=== PATIENT | male | born 1950 | race Caucasian/White ===

== ENCOUNTER 2024-09-22 13:05 | Outpatient (AMB) | payer OTHER, MEDICARE, SELFPAY ==
--- NOTE | 2024-09-22 13:09 | A.OFFVIS_ITS ---
Intake Visit Reasons: 3 month f/u Allergies oxycodone Allergy (Verified 09/21/24 16:36) Unknown Medication List - Last Reconciled 09/22/24 by Fe Jones MD aripiprazole 5 mg PO DAILY aspirin 81 mg PO DAILY memantine 5 mg PO BID metoprolol succinate ER 25 mg PO DAILY sertraline 50 mg PO DAILY trazodone 25 mg PO QPM HPI Comments Details: 73 years old left-handed man with past medical history of coronary artery disease and bypass surgery done in November of 2023, and vascular dementia. His MRI brain in 2024 revealed extensive microvascular disease ischemic disease. He was having more problems with his cognition and tremor in his hands. [facility] Medical History (Updated 09/22/24 @ 13:19 by Fe Jones MD) Vascular dementia Alzheimer disease Encephalopathy Surgical History (Updated 09/21/24 @ 16:35 by Paulina Mccrary MA) Hx of CABG Physical Exam Neuro Other: Mental Status: Alert and oriented to person, place, and time. Normal attention. Normal spontaneous speech, fluency, and comprehension. No obvious issues with mood and memory. Affect is appropriate. Cranial Nerves: CN II: Visual desai full to confrontation, visual acuity intact. CN III, IV, : Pupils equal, round, reactive to light and accommodation. Extraocular movements are normal. CN V: Facial sensation is normal. CN VII: Facial movements symmetrical. CN VIII: Hearing intact to bedside conversation is normal. CN IX, X: Palate elevates symmetrically. CN XI: Shoulder shrug and head turn symmetrical. CN XII: Tongue midline without atrophy or fasciculations. Motor: Bulk and tone normal in all extremities. No significant muscle weakness in arms and legs. No drift. Reflexes: Deep tendon reflexes 2+ and symmetric. Plantar response down-going bilaterally. Coordination: [id number]-pu-[id number] and stmc-cw-vcvw testing normal. No dysmetria. Gait and Station: No obvious gait abnormality. No ataxia or instability. Sensory: Intact to light touch, pinprick, and vibration. Romberg is negative. Extrapyramidal: Full facial expressions and blinking. No rigidity. Movements are appropriate with no tremor or abnormality. Speech: Normal; no dysarthria or tremor. Assessment & Plan Assessment & Plan (1) Vascular dementia: Comment: MRI brain WO at [facility] in May 2024: Extensive WM changes (reported) EEG at off in Apr 2024: Mild slowing B12/Lyme in Apr 2024: OK Code(s): F01.50 - Vascular dementia, unspecified severity, without behavioral disturbance, psychotic disturbance, mood disturbance, and anxiety Category: Medical Qualifiers: Dementia severity: moderate Dementia behavioral or psychological symptom: without behavioral, psychotic, or mood disturbance or anxiety Qualified Code(s): F01.B0 - Vascular dementia, moderate, without behavioral disturbance, psychotic disturbance, mood disturbance, and anxiety Plan Symptoms of worsening cognitive functioning, tremor and balance were discussed with his daughter. Dose of memantine was increased to 10 mg twice a day. Tremor was mild and he was already taking a beta pinky and adding propranolol at this time might not make any significant difference. He has been walking with a cane and also has a walker and was advised to use the walker to walk for exercise. He was not having any significant behavioral issues to suggest prescribing any psychotropic medicines. MRI CD was not here and was not reviewed. His daughter would try to obtain the CD and would bring it at next visit. Medications: New memantine (Namenda) 10 mg PO BID 180 tabs 1RF 90 days Coding Level of Care Code Est Pt Level 4 (30437) Diagnoses Moderate vascular dementia without behavioral disturbance, psychotic disturbance, mood disturbance, or anxiety F01.B0 Dementia severity: moderate Dementia behavioral or psychological symptom: without behavioral, psychotic, or mood disturbance or anxiety
--- OUTSIDE RECORDS SUMMARY | 2024-09-22 13:42 | XMS_ITS | Clinical Summary ---
Author Organization [facility] Address [address] [facility] [place] [address] Phone Care Team Providers Care Multilith Operator Name Role Phone Shekhar Parks NP Primary Care Provider Allergies Active Allergy Reactions Criticality Noted Date Comments Oxycodone Nausea And Vomiting 10/11/2021 Violently ill, shakes Medications aspirin ([place]) 81 mg capsule Take 1 capsule by mouth 1 (one) time each day. Active sertraline (ZOLOFT) 50 mg tablet Take 1 tablet (50 mg total) by mouth 1 (one) time each day. Active traZODone (DESYREL) 50 mg tablet Take 0.5 tablets (25 mg total) by mouth at bedtime. Active ARIPiprazole (ABILIFY) 2 mg tablet Take 2 tablets (4 mg total) by mouth at bedtime. Active memantine (NAMENDA) 5 mg tablet Take 1 tablet (5 mg total) by mouth 2 (two) times a day. Active lisinopriL (PRINIVIL,ZESTR IL) 40 mg tablet Take 1 tablet (40 mg total) by mouth 1 (one) time each day. 90 tablet 1 07/28/2024 Active metoprolol succinate (TOPROL-XL) 25 mg 24 hr tablet Take 1 tablet (25 mg total) by mouth 1 (one) time each day. Do not crush or chew. 90 tablet 1 07/28/2024 Active atorvastatin (LIPITOR) 40 mg tablet Take 1 tablet (40 mg total) by mouth 1 (one) time each day. 90 tablet 1 07/28/2024 Active varenicline tartrate (CHANTIX) 1 mg tablet Take with full glass of water. For the first 3 days take 1/2 pill daily. Days 4-6 take 1/2 tablet twice a day. Then one tablet daily thereafter. 30 tablet 2 07/28/2024 Active Active Problems Problem Noted Date Diagnosed Date Tobacco use 07/28/2024 Assessment & Plan (07/28/2024 8:32 PM EDT): A prescription for Chantix has been provided to aid in smoking cessation. The dosage will start at 0.5 mg once a day for the first 3 days, then 0.5 mg twice a day from days 4-7, and finally 1 mg daily from day 8 onward. He is advised to follow up with his primary care physician as scheduled in two months for ongoing assistance with Chantix if needed. CAD (coronary artery disease) 10/11/2021 Assessment & Plan (07/28/2024 8:32 PM EDT): Patient has history of extensive coronary artery disease with CABG as outlined in detailed above. He is feeling well and denies any exertional anginal symptoms. He is maintaining an active lifestyle and has been walking daily for exercise without any exertional symptoms. He will continue on cardioprotective medical therapy with aspirin, beta-pinky and statin. I have reviewed with the patient the importance of a heart healthy lifestyle which includes eating a low-fat low-salt diet, getting regular exercise, maintaining a healthy weight, not smoking, and following up with routine medical care. HTN (hypertension) 10/11/2021 Assessment & Plan (07/28/2024 8:32 PM EDT): Patient's blood pressure is elevated today with a reading of 152/80. I will increase his lisinopril to 40 mg once a day and repeat a basic metabolic panel in 1 week. Other hyperlipidemia 10/11/2021 Assessment & Plan (07/28/2024 8:32 PM EDT): Goal LDL cholesterol is less than 78. He continues on atorvastatin 40 mg daily. Encounters Date Type Department Care Team Description 07/28/2024 1:10 PM EDT Office Visit [facility] [address] [facility] [address] [place] [address] Brittany Gallagher NP Coronary artery disease involving [place] coronary artery of [place] heart without angina pectoris (Primary Dx); Primary hypertension; Other hyperlipidemia; Tobacco use from Last 3 Months Surgical History Surgery Date Site/Laterality Comments CARDIAC STRESS TEST W/(ADENO) 07/06/2003 COLONOSCOPY 2014 2002 2002 SHOULDER SURGERY x2 2003 CARDIAC CATHETERIZATION DONE ON 11/17/2023 AT [facility] W STEFF INDICATIONS:ANGINA Medical History Medical History Date Comments Adjustment disorder with anxiety BPH (benign prostatic hyperplasia) Branch retinal vein occlusion (CMS/HCC V28) Diverticulosis of colon Tremor Posttraumatic stress disorder Family History Medical History Relation Name Comments Coronary artery disease Brother Diabetes Brother mellitus type 2 Macular degeneration Mother Relation Name Status Comments Brother Mother Social History Tobacco Use Types Packs/Day Years Used Date Smoking Tobacco: Every Day Cigarettes Smokeless Tobacco: Never Tobacco Cessation:Ready to Q uit: Not Asked; Counseling Given: Not Answered Comments:Smokes 0.5 ppd, and vapes daily Alcohol Use Standard Drinks/Week Comments Yes 7 (1 standard drink = 0.6 oz pur e alcohol) dhot of wine prior to bed Sex and Gender Information Value Date Recorded Sex Assigned at Not on file Legal Sex Male 9:08 PM EST Gender Identity Not on file Sexual Orientation Not on file Obstetrics History Last Filed Vital Signs Vital Sign Reading Time Taken Comments Blood Pressure 152/80 07/28/2024 1:12 PM EDT Pulse 65 07/28/2024 1:12 PM EDT Temperature - - Respiratory Rate - - Oxygen Saturation 95% 07/28/2024 1:12 PM EDT Inhaled Oxygen Concentration - - Weight 76.2 kg (168 lb) 07/28/2024 1:12 PM EDT Height 175.3 cm (5' 9 ) 07/28/2024 1:12 PM EDT Body Mass Index 24.81 07/28/2024 1:12 PM EDT Plan of Treatment Upcoming Encounters Date Type Department Care Team (Late st Contact Info) Description 10/01/2024 11:10 AM EDT Office Visit [facility] [address] [place] [id number] Brittany Gallagher NP [address] [place] [address] [place] [address] Health Maintenance Due Date Last Done Comments Zoster Vaccines (1 of 2) 1998 Pneumococcal Vaccine: 50+ Years (3 of 3 - PCV20 or PCV21) 08/04/2019 08/03/2014, 04/16/2011, 12/05/2005 Depression Screening 02/23/2022 Falls Risk Assessment 02/23/2022 Hepatitis C Screening 02/23/2022 Social Influencers of Health Screening 02/23/2022 DTaP,Tdap,and Td Vaccines (3 - Td or Tdap) 06/01/2022 06/01/2012, 02/04/2002 Medicare Annual Wellness Visit 06/14/2023 2022 RSV Immunization Adult Patients (1 - 1-dose 75+ series) 06/14/2023 COVID-19 Vaccine ( season) 2023 03/09/2021, 06/30/2020, 06/09/2020 Hypertension/CHF/CAD Annual BMP Blood Test 04/23/2025 04/23/2024 Cholesterol Screening (Lipid Panel) 04/23/2029 04/23/2024 Hepatitis B Vaccines Completed 06/03/2006, 01/03/2006, 12/05/2005 Influenza Vaccine Completed 01/23/2024, , 01/03/2020, Additional history exists HIB Vaccines Aged Out No longer eligi ble based on patient's age to complete this topic HPV Vaccines Aged Out No longer eligi ble based on patient's age to complete this topic Hepatitis A Vaccines Aged Out No long er eligible based on patient's age to complete this topic IPV Vaccines Aged Out No longer eligi ble based on patient's age to complete this topic MMR Vaccines Aged Out No longer eligi ble based on patient's age to complete this topic Meningococcal ACWY Vaccine Aged Out N o longer eligible based on patient's age to complete this topic Meningococcal B Vaccine Aged Out No l onger eligible based on patient's age to complete this topic RSV Immunization Patients Under 20 months Aged Out No longer eligible based on patient's age to complete this topic Varicella Vaccines Aged Out No longer eligible based on patient's age to complete this topic Procedures Procedure Name Priority Date/Time Associated Diagnosis Comments LIPID PANEL Routine 04/23/2024 12:42 PM EST Other hyperlipidemia BASIC METABOLIC PANEL Routine 04/23/2024 12:41 PM EST Hypertension, unspecified type from Last 3 Months or Most Recently Relevant to Health Maintenance Results * Lipid panel (04/23/2024 12:42 PM EST) Cholesterol Total 151 100 - 199 mg/dL [facility] Triglycerides 51 0 - 149 mg/dL [facility] HDL Cholesterol 62 >39 mg/dL [facility] VLDL Cholesterol Calculated 11 5 - 40 mg/dL [facility] LDL Chol Calc (NIH) 78 0 - 99 mg/dL [facility] 1 Blood Venous blood specimen / Unknown 04/23/2024 12:42 PM EST 04/23/2024 Narrative [facility] 1 - 04/24/2024 4:06 AM EST Performed at: 01 - [facility] [address] [id number] Sports Physical Therapist: Mary Curry MD, Phone: [phone] us Brittany Gallagher NEEDLE VALVE OPERATOR LAB BLOOD ORDERABLES Final R esult [facility] * (ABNORMAL) Basic metabolic panel (04/23/2024 12:41 PM EST) Glucose 119(H) 70 - 99 mg/dL [facility] Blood Urea Nitrogen (BUN) 19 8 - 27 mg/dL [facility] Creatinine 0.98 0.76 - 1.27 mg/dL [facility] 1 eGFR 80 >59 mL/min/1.7 3 [facility] 1 BUN/Creatinine Ratio 19 10 - 24 [facility] 1 Sodium 142 134 - 144 mmol/L [facility] 1 Potassium 4.5 3.5 - 5.2 mmol/L [facility] 1 Chloride 106 96 - 106 mmol/L [facility] 1 Carbon Dioxide 21 20 - 29 mmol/L [facility] 1 Calcium 9.5 8.6 - 10.2 mg/dL [facility] 1 Blood Venous blood specimen / Unknown 04/23/2024 12:41 PM EST 04/23/2024 Narrative [facility] 1 - 04/24/2024 4:06 AM EST Performed at: 01 - [facility] [address] [id number] Sports Physical Therapist: Mary Curry MD, Phone: [phone] us Brittany Gallagher NEEDLE VALVE OPERATOR LAB BLOOD ORDERABLES Final R esult [facility] 1 from Last 3 Months or Most Recently Relevant to Health Maintenance Insurance MEDICARE [facility] Care Teams Multilith Operator Relationship Specialty Start Date End Date Shekhar Parks NP [address] [place], [place] PCP - General 04/24/23
== END 2024-09-22 15:17 | disposition home or self-care (01) ==
LOC: HO.HSM 13:06
PROVIDERS: PCP Nurse Practitioner Family; Visit Provider Psychiatry & Neurology Neurology
DX: F01.B0 Vascular dementia, moderate, without behavioral disturbance, psychotic disturbance, mood disturbance, and anxiety (principal)
CPT/HCPCS: 99214

== ENCOUNTER 2024-12-29 12:23 | Outpatient (AMB) | payer MEDICARE, OTHER, SELFPAY ==
--- NOTE | 2024-12-29 12:25 | A.OFFVIS_ITS ---
Intake Visit Reasons: 3m Dementia Allergies oxycodone Allergy (Verified 09/21/24 16:36) Unknown Medication List - Last Reconciled 12/29/24 by Fe Jones MD aripiprazole 5 mg PO DAILY aspirin 81 mg PO DAILY memantine (Namenda) 10 mg PO BID 90 days metoprolol succinate ER 25 mg PO DAILY sertraline 50 mg PO DAILY trazodone 25 mg PO QPM HPI Comments Details: 74 years old left-handed man with past medical history of coronary artery disease and bypass surgery done in November of 2023, and vascular dementia. His MRI brain in 2024 revealed extensive microvascular disease ischemic disease. He is presenting with concerns related to cognitive function and management of ongoing medication regimen. Previously, he experienced excessive tremor and sedation due to Abilify, which was halted. Since initiating Aricept, the patient demonstrated marked improvement in cognitive performance and energy levels as observed by his daughter. Under Dr. Jarrett?s care, he is managed through the memory clinic run by Dr. Foster. Medications currently include Namenda, Sertraline, Trazodone, aspirin, and Flomax, with plan continuity discussed. [facility] Medical History (Updated 09/22/24 @ 13:19 by Fe Jones MD) Vascular dementia Alzheimer disease Encephalopathy Surgical History (Updated 09/21/24 @ 16:35 by Paulina Mccrary MA) Hx of CABG Review of Systems Const Details: - Neurological: Reports lethargy and sleepiness; improvement in alertness and focus with Aricept - Musculoskeletal: Reports excessive tremor attributed to prior Abilify use, now discontinued - No other systems discussed in the conversation Physical Exam Neuro Other: Mental Status: Alert and oriented to person, place, and time. Normal attention. Normal spon taneous speech, fluency, and comprehension. Cranial Nerves: CN II: Visual desai full to confrontation, visual acuity intact. CN III, IV, : Pupils equal, round, reactive to light and accommodation. Extraocular movements are normal. CN V: Facial sensation is normal. CN VII: Facial movements symmetrical. CN VIII: Hearing intact to bedside conversation is normal. CN IX, X: Palate elevates symmetrically. CN XI: Shoulder shrug and head turn symmetrical. CN XII: Tongue midline without atrophy or fasciculations. Speech: Normal; no dysarthria or tremor. Assessment & Plan Assessment & Plan (1) Vascular dementia: Comment: MRI brain WO at [facility] in May 2024: Extensive WM changes (reported) EEG at off in Apr 2024: Mild slowing B12/Lyme in Apr 2024: OK Code(s): F01.50 - Vascular dementia, unspecified severity, without behavioral disturbance, psychotic disturbance, mood disturbance, and anxiety Category: Medical Qualifiers: Dementia severity: moderate Dementia behavioral or psychological symptom: without behavioral, psychotic, or mood disturbance or anxiety Qualified Code(s): F01.B0 - Vascular dementia, moderate, without behavioral disturbance, psychotic disturbance, mood disturbance, and anxiety Plan Impression: Dementia, mld to moderately severe, with extensive WM changes on brain MRI. He has seen Dr. Kern, apparently a geriatician and memory special ist, who has ordered donepezil and a skin biopsy to r/o Lewy body disease Rec: a: Memantine 10mg bid b: Donepezil 10mg a day c: Sertaline 50mg in am d: Trazodone 25mg at night e: F/u in 6 m Medications: New tamsulosin (Flomax) 0.4 mg PO BEDTIME donepezil 10 mg PO BEDTIME Coding Level of Care Code Est Pt Level 4 (61641) Diagnoses Moderate vascular dementia without behavioral disturbance, psychotic disturbance, mood disturbance, or anxiety F01.B0 Dementia severity: moderate Dementia behavioral or psychological symptom: without behavioral, psychotic, or mood disturbance or anxiety
== END 2024-12-29 12:37 | disposition home or self-care (01) ==
LOC: HO.HSM 12:23
PROVIDERS: PCP Nurse Practitioner Family; Visit Provider Psychiatry & Neurology Neurology
DX: F01.B0 Vascular dementia, moderate, without behavioral disturbance, psychotic disturbance, mood disturbance, and anxiety (principal)
CPT/HCPCS: 99214

== ENCOUNTER → 2024-12-29 12:23 | Outpatient (BNVA) | payer MEDICARE, SELFPAY | PROVIDERS: PCP Nurse Practitioner Family; Visit Provider Psychiatry & Neurology Neurology | DX: F01.50 Vascular dementia, unspecified severity, without behavioral disturbance, psychotic disturbance, mood disturbance, and anxiety (principal); F01.B0 Vascular dementia, moderate, without behavioral disturbance, psychotic disturbance, mood disturbance, and anxiety; Z95.1 Presence of aortocoronary bypass graft; Z79.82 Long term (current) use of aspirin | CPT/HCPCS: 99212 ==